=== PATIENT | female | born 2000 | race Two or more races ===

== ENCOUNTER 2025-01-17 18:04 | Emergency (ER) | payer MEDICAID, SELFPAY ==
[2025-01-17 18:08] VITALS: BMI 26.2
[2025-01-17 18:13] VITALS: BP 144/96; PULSE 117; RESP 18; TEMP 36.7; O2SAT 99
--- NOTE | 2025-01-17 18:45 | PC.NURSE ---
Patient came in to the ED after falling on cracked ipad, she sustain a laceration to left elbow with skin flap. Crisjun sutured area and clean dressing applied. pt tolerated well.
--- NOTE | 2025-01-17 18:51 | PD.EDWOUND ---
ED Wound/Laceration-RME/HPI General Chief Complaint: Wound/Laceration Stated Complaint: LACERATION LEFT ELBOW Time Seen by Provider: 01/17/25 18:17 Arrival date/time: 01/17/25 18:04 RME / HPI RME / HPI narrative: 24-year-old female patient came in for evaluation regarding laceration to the left elbow. Patient accidentally elbowed working iPad resulting into 3 cm flap-like laceration. Patient is able to bend and extend the elbow without any limitation. Patient denies any other injury. Patient tetanus vaccination is 2 years ago. Related Data Home Medications ?Medication ?Instructions ?Recorded ?Confirmed prenat.vits,stewart,[id number] 1 tab PO QDAY 05/04/21 05/04/21 Previous Rx's ?Medication ?Instructions ?Recorded hydrocodone 5 mg-acetaminophen 300 1 tab PO Q4H PRN pain #30 tabs 05/04/21 mg tablet Allergies Allergy/AdvReac Type Severity Reaction Status Date / Time NKA* Allergy Uncoded 05/04/21 17:57 Review of Systems Review of Systems Narrative Review of Systems: Review of system reviewed and within normal limits except mentioned in HPI ED Exam Narrative Physical exam: VITAL SIGNS: Reviewed. GENERAL APPEARANCE: Alert and interactive, follows commands, no acute distress, HEAD AND FACE: Non-traumatic. ENT: PERRL, pink conjunctivitis, eyelid no trauma, Mucous membrane moist. NECK: Supple, nontender, no nuchal rigidity. RECTAL: Deferred. GENITAL: Deferred. NEUROLOGICAL: Gross motor function intact sensory function intact, Appropriate for age. MUSCULOSKELETAL: low back nontender, full range of motion. EXTREMITIES: +3 cm flap-like laceration, left posterior elbow, full range of motion. SKIN: Color pink, dry, no rash, no lacerations, no abrasions, no contusions. LYMPHATICS: Deferred. Course Quality Measures none Vital Signs Vital signs: Vital Signs Temperature 98.0 F 01/17/25 18:13 Pulse Rate 117 H 01/17/25 18:13 Respiratory Rate 18 01/17/25 18:13 Blood Pressure 144/96 H 01/17/25 18:13 Pulse Oximetry (%) 99 01/17/25 18:13 Oxygen Delivery Method Room Air 01/17/25 18:13 Procedures -ED Laceration Laceration 1: Site: other (Left posterior elbow) Size (cm): 3 Description: flap Depth: simple, single layer Local Anesthetic: lidocaine 1% Amount of anesthesia used (mL): 10 Pre-repair: wound explored, irrigated extensively and deep structures intact Skin layer closed with: nylon Size (cm): 3-0 Number of sutures: 11 Technique: simple, interrupted Wound / Laceration MDM Narrative MDM Narrative:: 24-year-old female patient came in for evaluation regarding laceration to the left elbow. Patient accidentally elbowed working iPad resulting into 3 cm flap-like laceration. Patient is able to bend and extend the elbow without any limitation. Patient denies any other injury. Patient tetanus vaccination is 2 years ago. Repair and suturing was done by me see procedure notes. Multiple reevaluation I did not notice any more foreign body I was able to remove 3 pieces of glass. Patient tolerated procedure well Meeting is not needed at this time. Patient data External records reviewed:: None Clinical information provided by:: patient Social determinants that could affect healthcare access:: none Patient has the following chronic illnesses:: None How is presenting disease/condition affected by chronic disease/condition?: no chronic disease Evaluation data The following diagnostics were reviewed and interpreted by me:: other (specify) Lab and/or radiology exams considered but not ordered:: None Interpretation Summary: None Medications / Prescriptions Medications or Prescriptions considered but not ordered:: None Medication administrations:: None Consultations Consultation(s) initiated? (list below): No Diagnosis Wound Differential Diagnosis: laceration Most likely diagnosis given after review of the tests above:: None Admission Indicated Admission indicated?: not indicated Admission Request Was there a request for admission?: No Disposition Plan Disposition Plan: Discharge Discharge Attestation Discharge Attestation: The patient and all family members were given an opportunity to ask questions and understood the discharge instructions. Discharge instructions specifically effects, indications for sooner follow up or return to the emergency department, and the expected course of current diagnosis. Patient condition: Stable Discharge Plan Plan Patient Disposition: HOME (Self Care) Disposition Comment: Stable Prescriptions/Referrals Prescriptions/Med Rec: No Action prenat.vits,stewart,dso-ytlv-joyac Tablet 1 tab PO QDAY hydrocodone-acetaminophen 5-300 mg tablet 1 tab PO Q4H MDD 6 PRN (Reason: pain) Qty: 30 0RF Problem List Clinical Impression: Laceration of elbow Patient/Caregiver Discharge Instructions Discharge Activity: back to school once clear Education Materials: ED Laceration: All Closures Additional Instructions: Thank you for the opportunity for serving you today. You are stable for discharged . You are advised to: Follow-up with your PCP in 1 to 2 days Return to ED for worsening of symptoms Increase oral fluids Daily dressing with Neosporin You can take [id number] Tylenol Motrin as needed for pain For removal of sutures in 10 days Print Language: Vietnamese Stand Alone Forms: Elise Award Info., Patient Portal Info Letter PA/FOREST FIREFIGHTER Supervising Physician PA/FOREST FI[employer]HTER Supervising Physician: MD Андрей
== END 2025-01-18 19:09 | disposition home or self-care (01) ==
LOC: SERX 20:13
PROVIDERS: Emergency Provider Emergency Medicine
DX: S51.012A Laceration without foreign body of left elbow, initial encounter (principal); W22.8XXA Striking against or struck by other objects, initial encounter
CPT/HCPCS: 12002; 99283

== ENCOUNTER → 2025-06-05 | Outpatient (CLI) | payer MEDICAID, SELFPAY ==
--- NOTE | 2025-06-05 14:07 | XR_ITS ---
Examination: Wrist, left 3 views Technique: Wrist AP, oblique, lateral 3 views Date and time of exam: June 05, 2025 1409 hours INDICATIONS: Patient fell January 2025 with into the wrist, wrist pain. FINDINGS: No acute fracture No dislocation No foreign body IMPRESSION: No acute fracture
--- NOTE | 2025-06-05 14:07 | XR_ITS ---
Examination: Left elbow 2 views Technique one AP lateral left elbow 2 views Date and time: June 05, 2025 1414 hours INDICATIONS: Patient fell January 2025 with into the elbow, elbow pain. FINDINGS: No elbow fracture or dislocation No foreign body IMPRESSION: Negative for fracture or dislocation
--- NOTE | 2025-06-05 14:07 | XR_ITS ---
Examination: Hand, left Technique: Hand AP, oblique, lateral 3 views Date and time of exam: June 05, 2025 1409 hours INDICATIONS: Left hand pain after fall January 2025 FINDINGS: No acute fracture. No dislocation. No foreign body IMPRESSION: No acute fracture
== END | disposition home or self-care (01) ==
LOC: CDIM 13:51
DX: M25.522 Pain in left elbow (principal); M25.532 Pain in left wrist; M79.642 Pain in left hand; S69.92XS Unspecified injury of left wrist, hand and finger(s), sequela; S59.902S Unspecified injury of left elbow, sequela; W19.XXXS Unspecified fall, sequela
CPT/HCPCS: 73070; 73110; 73130